=== PATIENT | female | born 1950 | race Hispanic/Latino ===

== ENCOUNTER 2021-01-27 13:10 | Emergency (ER) | payer MEDICARE ==
[~2021-01-27] VITALS: Ht 160 cm; Wt 85.9 kg
[2021-01-27] MEDS ORDERED: ATORVASTATIN CA10 MG PO (13:27)
[2021-01-27] MEDS ORDERED: METOPROLOL TART25 MG PO (13:27)
[2021-01-27] MEDS ORDERED: CLONIDINE HCL 0.2 MG TAB PO ONE (13:45)
[2021-01-27] MEDS ORDERED: CLONIDINE HCL 0.1 MG TAB ONE (14:06)
[2021-01-27 14:12] VITALS: BP 166/80
== END 2021-01-27 14:50 | disposition home or self-care (01) ==
LOC: FSED 13:39
DX: I10 Essential (primary) hypertension (principal)
CPT/HCPCS: 80053; 85025; 99283